=== PATIENT | male | born 2000 | race Caucasian/White ===

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

== ENCOUNTER 2019-11-30 16:07 | Emergency (ER) | payer MEDICAID ==
[~2019-11-30] VITALS: Ht 172.7 cm; Wt 73.0 kg
[~2019-11-30 16:07] MED LIST: ANITBIOTIC; OXYC5CAP2 PO
[2019-11-30 16:11] VITALS: BP 149/80
[2019-11-30] MEDS ORDERED: OXYcodone/APAP 5/325MG TABLET PO ONE (16:30)
[2019-11-30] MEDS ORDERED: OXYcodone/APAP 5/325MG TABLET ONE (16:43)
== END 2019-11-30 17:42 | disposition home or self-care (01) ==
LOC: ED 17:08
DX: S93.491A Sprain of other ligament of right ankle, initial encounter (principal); F17.290 Nicotine dependence, other tobacco product, uncomplicated; W22.8XXA Striking against or struck by other objects, initial encounter; Y93.89 Activity, other specified; Y92.098 Other place in other non-institutional residence as the place of occurrence of the external cause; Y99.8 Other external cause status
CPT/HCPCS: 99283